=== PATIENT | female | born 1945 | race Caucasian/White ===

== ENCOUNTER 2020-09-08 17:24 | Inpatient (IN) ==
[2020-09-08] MEDS ORDERED: Naloxone 0.4 MG/ML INJ IVP PRN (20:28)
[2020-09-08] MEDS ORDERED: Ondansetron 4 MG/2 ML VIAL IVP PRN (20:28)
[2020-09-08] MEDS ORDERED: Acetaminophen 325 MG TABLET PO PRN (20:28)
[2020-09-08] MEDS ORDERED: Melatonin 3 MG TABLET PO PRN (20:28)
[2020-09-08] MEDS ORDERED: 0.9 % Sodium Chloride 1,000 ML IVC SCH (20:30)
[2020-09-08] MEDS ORDERED: Pregabalin 75 MG CAPSULE PO SCH (22:00)
[2020-09-08] MEDS ORDERED: Venlafaxine XR (24 HR) 75 MG CAP.ER.24H PO SCH (22:00)
[2020-09-08] MEDS ORDERED: cefTRIAXone 1,000 MG in 0.9 % Sodium Chloride Mini Bag 100 ML IVPB SCH (22:11)
[2020-09-08] MEDS: sulfaSALAzine 500 MG TABLET PO SCH (22:34)
[2020-09-08 23:13] LABS: Bacteria,Urine Few per hpf (None-Few); Bilirubin,Urine Negative (Negative); Blood,Urine Large (Negative); Clarity,Urine Turbid (Clear); Color,Urine Light-Yellow (Yellow); Glucose,Urine (UA) Normal (Normal); Ketones,Urine Trace mg/dL (Negative); Leukocyte Esterase,Urine Moderate (Negative); Mucus,Urine Few per lpf (None-Few); Nitrite,Urine Negative (Negative); Protein,Urine Trace mg/dL (Neg-Trace); RBC,Urine TNTC per hpf (0-3); Specific Gravity,Urine 1.015 (1.010-1.025); Squamous Epithelial Cell,Urine Few per hpf (None-Few); Urobilinogen,Urine Normal (Normal); WBC,Urine 30-50 per hpf (0-3)
[2020-09-09 07:14] LABS: Hemoglobin 11.9 g/dL (11.5-15.4); Lymphocytes # 0.9 K/mcL (0.6-4.6); Mean Corpuscular HGB Conc 32.2 g/dL (31.6-35.5); Mean Corpuscular Hemoglobin 31.4 pg (28.0-33.3); Mean Corpuscular Volume 97.6 fL (83.0-100.0); Mean Platelet Volume 9.7 fL (9.4-12.4); Monocytes # 0.8 K/mcL (0.0-1.3); Platelet Count 166 K/mcL (140-400); Red Blood Count 3.79 M/mcL (3.82-4.97); Red Cell Distribution Width 12.3 % (11.5-14.5); White Blood Count 3.8 K/mcL (4.3-11.1)
[2020-09-09] MEDS: sulfaSALAzine 500 MG TABLET PO SCH ×2 (07:33→19:53)
[2020-09-09 07:37] LABS: Alanine Aminotransferase 11 Units/L (7-52); Albumin 3.4 g/dL (3.5-5.7); Albumin/Globulin Ratio 1.2 (1.1-2.2); Alkaline Phosphatase 64 Units/L (34-104); Aspartate Amino Transferase 18 Units/L (13-39); Bilirubin,Total 0.4 mg/dL (0.3-1.0); Blood Urea Nitrogen 18 mg/dL (8-23); Calcium 8.9 mg/dL (8.6-10.3); Carbon Dioxide 25 mEq/L (23-29); Chloride 109 mEq/L (98-107); Globulin 2.8 g/dL (2.4-3.5); Glucose 96 mg/dL (70-105); Osmolality,Calculated 290 (280-300); Potassium 4.4 mEq/L (3.5-5.1); Sodium 139 mEq/L (136-145); Total Protein 6.2 g/dL (6.4-8.9)
[2020-09-09 07:54] LABS: Basophils # 0.1 K/mcL (0.0-0.2); Eosinophils # 0.2 K/mcL (0.0-0.6); Neutrophils # 1.9 K/mcL (1.6-8.9); Platelet Estimate Normal (Normal)
[2020-09-09] MEDS ORDERED: Celecoxib 200 MG CAPSULE PO SCH (09:00)
[2020-09-09] MEDS ORDERED: Famotidine 20 MG/2 ML VIAL IVP ONE (09:19)
[2020-09-09] MEDS ORDERED: *HR* Labetalol 20 MG/4 ML SYRINGE IVP PRN (09:19)
[2020-09-09] MEDS ORDERED: *HR* HYDROmorphone 2 MG TABLET PO PRN (09:19)
[2020-09-09] MEDS ORDERED: *HR* HYDROmorphone (PF) 1 MG/ML SYRINGE IVP PRN (09:19)
[2020-09-09] MEDS ORDERED: Promethazine 6.25 MG in Water for inj. (sterile) 20 ML IVPB PRN (09:19)
[2020-09-09] MEDS ORDERED: *HR* OxyCODONE Immed Rel 5 MG TABLET PO PRN (09:19)
[2020-09-09 09:58] LABS: BUN/Creatinine Ratio 19 (6-26); eGFR For African Americans > 60 (> 60); eGFR For Non-African Americans 58 (> 60)
[2020-09-09] MEDS ORDERED: Acetaminophen IV 1,000 MG/100 ML BAG IVPB ONE ×2 (11:00→16:46)
[2020-09-09] MEDS ORDERED: Ondansetron 4 MG/2 ML VIAL ONE (14:34)
[2020-09-09] MEDS ORDERED: *HR* FentaNYL (PF) 100 MCG/2 ML VIAL ONE (14:34)
[2020-09-09] MEDS ORDERED: Lidocaine -MPF 2% 2 ML VIAL ONE (14:34)
[2020-09-09] MEDS ORDERED: *HR* Propofol 200 MG/20 ML VIAL IVP ONE (14:34)
[2020-09-09] MEDS ORDERED: *HR* Succinylcholine 200 MG/10 ML VIAL IVP ONE (14:34)
[2020-09-09] MEDS ORDERED: Isovue-300 50ML VIAL ONE (16:31)
[2020-09-09] MEDS ORDERED: Famotidine 20 MG/2 ML VIAL ONE (16:47)
[2020-09-09] MEDS ORDERED: *HR* Belladonna Alkaloids/Opium 30 MG RECTAL SUPPOSITORY RC ONE (17:48)
[2020-09-09] MEDS ORDERED: Venlafaxine XR (24 HR) 75 MG CAP.ER.24H PO SCH ×2 (18:00→21:00)
[2020-09-09] MEDS ORDERED: Pregabalin 75 MG CAPSULE PO SCH (18:00)
[2020-09-09] MEDS ORDERED: Melatonin 3 MG TABLET PO PRN (19:02)
[2020-09-09] MEDS ORDERED: Acetaminophen 325 MG TABLET PO PRN (19:02)
[2020-09-09] MEDS ORDERED: Ondansetron 4 MG/2 ML VIAL IVP PRN (19:02)
[2020-09-09] MEDS ORDERED: Naloxone 0.4 MG/ML INJ IVP PRN ×2 (19:02)
[2020-09-09] MEDS ORDERED: sulfaSALAzine 500 MG TABLET PO SCH (21:00)
[2020-09-09] MEDS ORDERED: cefTRIAXone 1,000 MG in 0.9 % Sodium Chloride Mini Bag 100 ML IVPB SCH (22:11)
[2020-09-10 05:23] LABS: Basophils # 0.1 K/mcL (0.0-0.2); Basophils % 1.1 %; Eosinophils % 0.4 %; Hematocrit 38.2 % (35.3-44.9); Hemoglobin 11.9 g/dL (11.5-15.4); Immature Granulocytes % 0.2 % (0-4); Lymphocytes # 0.9 K/mcL (0.6-4.6); Lymphocytes % 18.5 %; Mean Corpuscular HGB Conc 31.2 g/dL (31.6-35.5); Mean Corpuscular Hemoglobin 30.2 pg (28.0-33.3); Mean Platelet Volume 9.7 fL (9.4-12.4); Monocytes # 0.6 K/mcL (0.0-1.3); Monocytes % 12.3 %; Neutrophils # 3.1 K/mcL (1.6-8.9); Platelet Count 186 K/mcL (140-400); Red Blood Count 3.94 M/mcL (3.82-4.97); Red Cell Distribution Width 11.9 % (11.5-14.5); Segmented Neutrophils % 67.5 %; White Blood Count 4.6 K/mcL (4.3-11.1)
[2020-09-10 05:48] LABS: BUN/Creatinine Ratio 18 (6-26); Blood Urea Nitrogen 17 mg/dL (8-23); Calcium 9.3 mg/dL (8.6-10.3); Carbon Dioxide 24 mEq/L (23-29); Chloride 108 mEq/L (98-107); Glucose 103 mg/dL (70-105); Osmolality,Calculated 286 (280-300); Potassium 4.4 mEq/L (3.5-5.1); Sodium 137 mEq/L (136-145); eGFR For African Americans > 60 (> 60); eGFR For Non-African Americans 59 (> 60)
[2020-09-10 06:33] VITALS: BP 134/77; PULSE 68; TEMP 98.1; O2SAT 93
[2020-09-10] MEDS: sulfaSALAzine 500 MG TABLET PO SCH (08:55)
[2020-09-10] MEDS ORDERED: Pregabalin 50 MG CAPSULE PO SCH ×2 (09:00)
[2020-09-10] MEDS ORDERED: Folic Acid 1 MG TABLET PO SCH ×2 (09:00)
[2020-09-10] MEDS ORDERED: Celecoxib 200 MG CAPSULE PO SCH (09:00)
[2020-09-10] MEDS ORDERED: Pregabalin 75 MG CAPSULE PO SCH (18:00)
[2020-09-10] MEDS ORDERED: Venlafaxine XR (24 HR) 75 MG CAP.ER.24H PO SCH (18:00)
== END 2020-09-10 12:06 | disposition home or self-care (01) | DRG 661 ==
LOC: 3BNU → SUATTDRO 09-09 11:52
PROVIDERS: ADMIT Internal Medicine; ATTEND Internal Medicine